=== PATIENT | female | born 1990 | race Caucasian/White ===

== ENCOUNTER 2018-01-23 04:11 | Emergency (ER) | payer BC ==
[2018-01-23] MEDS ORDERED: MORPHINE SULFATE 10 MG/ML INJ IV ONE (04:34)
[2018-01-23] MEDS ORDERED: ONDANSETRON HCL INJ/PF 4 MG/2 ML SDV IV ONE (04:35)
--- NOTE | 2018-01-23 04:38 | ER Document Report ---
ED General - General Chief Complaint: Abdominal Pain Stated Complaint: ABDOMINAL PAIN Time Seen by Provider: 01/23/18 04:30 Mode of Arrival: Ambulatory Information source: Patient, Friend Notes: 27-year-old female with no reported past medical history presents with complaint of right lower quadrant pain that started just prior to arrival. Patient states that she awoke from sleep crying. Pain is described as stabbing , constant and associated with nausea but no vomiting. Patient states that she went to bed well. She denies any recent illness. She denies fever, chills, chest pain, shortness of breath, back pain, dysuria, hematuria, vaginal discharge. Last menstrual period was 1 week prior to this visit. She denies sick contacts. She denies any recent travel, antibiotic use. - HPI Onset: Just prior to arrival Onset/Duration: Sudden Quality of pain: Sharp, Stabbing Severity: Moderate Associated symptoms: Nausea. denies: Chest pain, Diarrhea, Fever, Vomiting, Shortness of breath Exacerbated by: Movement Relieved by: Denies Similar symptoms previously: No Recently seen / treated by doctor: No - Related Data Allergies/Adverse Reactions: No Known Drug Allergies Allergy (Verified 01/23/18 05:42) Past Medical History - General Information source: Patient - Social History Smoking Status: Never Smoker Frequency of alcohol use: None Drug Abuse: None Lives with: Spouse/Significant other Family History: Reviewed & Not Pertinent Patient has suicidal ideation: No Patient has homicidal ideation: No - Medical History Medical History: Negative Review of Systems - Review of Systems Notes: REVIEW OF SYSTEMS: CONSTITUTIONAL : Denies fever, chills, or sweats. Denies recent illness. Denies weight loss, recent hospitalizations. EENT: Denies visual changes, eye pain. Denies sore throat, oral lesions, difficulty swallowing. CARDIOVASCULAR: Denies chest pain. Denies palpitations. Denies lower extremity edema. RESPIRATORY: Denies cough. Denies shortness of breath, wheezing. GASTROINTESTINAL: Denies abdominal distention. Denies vomiting, or diarrhea. Denies blood in vomitus, stools, or per rectum. Denies black, tarry stools. Denies constipation. GENITOURINARY: Denies difficulty urinating, painful urination, frequency, blood in urine, or vaginal discharge. MUSCULOSKELETAL: Denies back or neck pain or stiffness. Denies joint pain or swelling. SKIN: Denies rash, lesions or sores. HEMATOLOGIC : Denies easy bruising or bleeding. LYMPHATIC: Denies swollen glands. NEUROLOGICAL: Denies confusion or altered mental status. Denies loss of consciousness. Denies dizziness or lightheadedness. Denies headache. Denies weakness or paralysis. Denies problems difficulty with ambulation, slurred speech. Denies sensory loss, numbness, or tingling. Denies seizures. PSYCHIATRIC: Denies anxiety or stress. Denies depression, suicidal ideation, or homicidal ideation. Denies visual or auditory hallucinations. PHYSICAL EXAMINATION: GENERAL: Well-appearing, well-nourished and in no acute distress. HEAD: Atraumatic, normocephalic. EYES: Pupils equal round and reactive to light, extraocular movements intact, conjunctiva are normal. ENT: Nares patent, oropharynx clear without exudates. Moist mucous membranes. NECK: Normal range of motion, supple without lymphadenopathy LUNGS: Breath sounds clear to auscultation bilaterally and equal. No wheezes rales or rhonchi. HEART: Regular rate and rhythm without murmurs ABDOMEN: Right lower quadrant tenderness with palpation. No guarding, no rebound. No masses appreciated. Female : deferred Musculoskeletal: Normal range of motion, no pitting or edema. No cyanosis. NEUROLOGICAL: Cranial nerves grossly intact. Normal speech, normal gait. Normal sensory, motor exams PSYCH: Normal mood, normal affect. SKIN: Warm, Dry, normal turgor, no rashes or lesions noted. Physical Exam - Vital signs Vitals: Temp Pulse Resp BP Pulse Ox 97.8 F 63 18 112/80 100 01/23/18 04:24 01/23/18 04:24 01/23/18 04:24 01/23/18 04:24 01/23/18 04:24 Interpretation: Normal. No: Tachycardic, Febrile - Notes Notes: PHYSICAL EXAMINATION: GENERAL: Well-appearing, well-nourished and in no acute distress. HEAD: Atraumatic, normocephalic. EYES: Pupils equal round and reactive to light, extraocular movements intact, conjunctiva are normal. ENT: Nares patent, oropharynx clear without exudates. Moist mucous membranes. NECK: Normal range of motion, supple without lymphadenopathy LUNGS: Breath sounds clear to auscultation bilaterally and equal. No wheezes rales or rhonchi. HEART: Regular rate and rhythm without murmurs ABDOMEN: Right lower quadrant tenderness with palpation. Positive McBurney's.. No guarding, no rebound. No masses appreciated. Female : deferred Musculoskeletal: Normal range of motion, no pitting or edema. No cyanosis. NEUROLOGICAL: Cranial nerves grossly intact. Normal speech, normal gait. Normal sensory, motor exams PSYCH: Normal mood, normal affect. SKIN: Warm, Dry, normal turgor, no rashes or lesions noted. Course - Re-evaluation Re-evalutation: 01/23/18 22:27 Laboratory 01/23/18 01/23/18 01/23/18 04:42 04:42 05:15 WBC 6.0 RBC 3.79 Hgb 12.3 Hct 35.9 L MCV 95 MCH 32.3 MCHC 34.2 RDW 13.1 Plt Count 293 Seg Neutrophils % 52.0 Lymphocytes % 37.6 Monocytes % 5.9 Eosinophils % 4.0 Basophils % 0.5 Absolute Neutrophils 3.1 Absolute Lymphocytes 2.3 Absolute Monocytes 0.4 Absolute Eosinophils 0.2 Absolute Basophils 0.0 Sodium 142.8 Potassium 3.9 Chloride 105 Carbon Dioxide 28 Anion Gap 10 BUN 9 Creatinine 0.71 Est GFR ( Amer) > 60 Est GFR (Non-Af Amer) > 60 Glucose 91 Calcium 9.4 Total Bilirubin 0.5 Direct Bilirubin 0.2 Neonat Total Bilirubin Not Reportable Neonat Direct Bilirubin Not Reportable Neonat Indirect Bili Not Reportable AST 25 ALT 16 Alkaline Phosphatase 74 Total Protein 7.1 Albumin 4.1 Lipase 75.3 Urine Color YELLOW Urine Appearance CLEAR Urine pH 6.0 Ur Specific [place] 1.009 Urine Protein 30 H Urine Glucose (UA) NEGATIVE Urine Ketones NEGATIVE Urine Blood LARGE H Urine Nitrite NEGATIVE Urine Bilirubin NEGATIVE Urine Urobilinogen NEGATIVE Ur Leukocyte Esterase LARGE H Urine WBC (Auto) 31 Urine RBC (Auto) 170 Urine Bacteria (Auto) 3+ Squamous Epi Cells Auto 3 Urine Mucus (Auto) RARE Urine Ascorbic Acid NEGATIVE Urine HCG, Qual NEGATIVE Abdomen/Pelvis CT 01/23/18 04:35 IMPRESSION: 1. No acute inflammatory or obstructive process identified. 2. Nonobstructing right nephrolithiasis This exam was performed according to our departmental dose-optimization program, which includes automated exposure control, adjustment of the mA and/or kV according to patient size and/or use of iterative reconstruction technique. 27-year-old female presents with complaint of right lower quadrant pain that started just prior to arrival. She described it as a sharp pain that was associated with nausea without vomiting. Patient describes the pain is intermittent. Vital signs stable upon arrival. Patient is afebrile, normotensive and not hypoxic. She does not appear toxic or dehydrated. She is in no acute distress. Exam is significant for right lower quadrant tenderness without guarding or rebound. No evidence of peritonitis. CBC is without leukocytosis or anemia. CMP shows no significant electrolyte abnormalities. HCG is negative. Urine is consistent with urinary tract infection. CT of the abdomen was obtained to assess for appendicitis and did show a nonobstructing right nephrolithiasis. No urolithiasis was identified. It is possible since the patient has blood in her urine that she has already passed a stone. I did explain to the patient that she has a stone in her kidney that is not causing her pain but that when it does start to descend she could experience pain similar to this. Patient was given morphine, Zofran, Keflex, IV fluids during her ED course. On reevaluation patient states her pain has greatly improved. I have low suspicion for infected obstructed stone, pyelonephritis, appendicitis , tubo-ovarian abscess. Patient was evaluated and treated as appropriate for the patient's presenting symptoms and complaint, with consideration of any critical or life threatening conditions that may be associated with their obtained history and exam as noted above. All results were discussed with patient. Patient provided the opportunity to ask questions, and express concerns. Patient was educated on treatments based on their presumed diagnosis as noted above. At this time we will discharge the patient with return precautions and follow-up recommendations. Verbal discharge instructions given a the bedside. Medication warnings reviewed. Patient is in agreement with this plan and has verbalized understanding of return precautions. After careful consideration I feel that that patient can be safely discharged from the emergency department, they were advised to followup with a primary care physician in 2-3 days. Dictation on this chart was performed using voice recognition software and may result in unintended grammatical, spelling, syntax or errors. 01/23/18 22:28 01/23/18 22:29 - Vital Signs Vital signs: Temp Pulse Resp BP Pulse Ox 97.9 F 62 15 99/57 L 100 01/23/18 06:42 01/23/18 06:42 01/23/18 06:42 01/23/18 06:42 01/23/18 06:42 - Laboratory Result Diagrams: 01/23/18 04:42 01/23/18 04:42 Laboratory results interpreted by me: 01/23/18 01/23/18 04:42 05:15 Hct 35.9 L Urine Protein 30 H Urine Blood LARGE H Ur Leukocyte Esterase LARGE H - Diagnostic Test Radiology reviewed: Image reviewed, Reports reviewed Discharge - Discharge Clinical Impression: Right lower quadrant abdominal pain, Nephrolithiasis Urinary tract infection Qualifiers: Urinary tract infection type: site unspecified Hematuria presence: with hematuria Qualified Code(s): N39.0 - Urinary tract infection, site not specified Condition: Good Disposition: HOME, SELF-CARE Instructions: Abdominal Pain ([facility]), Kidney Stone ([facility]), Observation for Appendicitis ([facility]), Urinary Tract Infection ([facility]) Additional Instructions: Your CAT scan did not show evidence of appendicitis. It did show that you have a stone in your right kidney which does not cause pain. It is possible that the acute pain that he felt was you passing a stone but we did not see any evidence of a stone in your ureter or bladder. Your urine shows findings consistent with a urinary tract infection. Please take all the antibiotics as directed even if your symptoms have improved. Please follow-up with your primary care physician as needed. Return to emergency room if you develop fever >101F, persistent vomiting, become lethargic, have severe pain in your sides, or any other symptoms that are concerning to you. Follow up with your [id number] hours for further care or return to the ED IMMEDIATELY if symptoms worsen or you have any concerns. If you cannot afford to follow up with your primary care physician a list of low cost clinics have been provided at the end of your discharge papers as well. Most prescribed medications have multiple side effects. The safest thing to do is when filling your prescription speak to your pharmacist regarding possible interactions with your normal home medications and over the counter medications such as Ibuprofen, Tylenol, Benadryl. If you experience any symptoms that cause you discomfort or concern you should discontinue the medication immediately and return to the emergency room or call your primary care physician. Prescriptions: Cephalexin Monohydrate [Keflex 500 mg Capsule] 500 mg PO BID 5 Days #14 capsule Forms: Return to Work
[2018-01-23] MEDS ORDERED: NORMAL SALINE 1000 ML 1,000 ML IV ONE (05:01)
[2018-01-23 05:04] LABS: ABSOLUTE EOSINOPHILS # (AUTO) 0.2 10^3/uL (0.0-0.6); ABSOLUTE LYMPHOCYTES (AUTO) 2.3 10^3/uL (0.5-4.7); ABSOLUTE MONOCYTES (AUTO) 0.4 10^3/uL (0.1-1.4); ABSOLUTE NEUT (AUTO) 3.1 10^3/uL (1.7-8.2); BASOPHILS % (AUTO) 0.5 % (0-2); HEMATOCRIT 35.9 % (36.0-47.0); HEMOGLOBIN 12.3 g/dL (12.0-15.5); LYMPHOCYTES % (AUTO) 37.6 % (13-45); MEAN CORPUSCULAR HEMOGLOBIN 32.3 pg (27.0-33.4); MEAN CORPUSCULAR HGB CONC 34.2 g/dL (32.0-36.0); MEAN CORPUSCULAR VOLUME 95 fl (80-97); MONOCYTES % (AUTO) 5.9 % (3-13); PLATELET COUNT 293 10^3/uL (150-450); RED BLOOD COUNT 3.79 10^6/uL (3.72-5.28); RED CELL DISTRIBUTION WIDTH 13.1 % (11.5-14.0); TOTAL CELLS COUNTED % (AUTO) 100 %
[2018-01-23 05:17] LABS: ALANINE AMINOTRANSFERASE 16 U/L (9-52); ALBUMIN 4.1 g/dL (3.5-5.0); ALKALINE PHOSPHATASE 74 U/L (38-126); ANION GAP 10 (5-19); ASPARTATE AMINO TRANSFERASE 25 U/L (14-36); BILIRUBIN,DIRECT 0.2 mg/dL (0.0-0.4); BILIRUBIN,TOTAL 0.5 mg/dL (0.2-1.3); BLOOD UREA NITROGEN 9 mg/dL (7-20); CALCIUM 9.4 mg/dL (8.4-10.2); CARBON DIOXIDE 28 mmol/L (22-30); CHLORIDE 105 mmol/L (98-107); GLUCOSE 91 mg/dL (75-110); LIPASE 75.3 U/L (23-300); POTASSIUM 3.9 mmol/L (3.6-5.0); SODIUM 142.8 mmol/L (137-145); TOTAL PROTEIN 7.1 g/dL (6.3-8.2)
[2018-01-23 05:40] LABS: APPEARANCE,URINE CLEAR; BILIRUBIN,URINE NEGATIVE (NEGATIVE); COLOR,URINE YELLOW; GLUCOSE, URINE NEGATIVE (NEGATIVE); KETONES,URINE NEGATIVE (NEGATIVE); LEUKOCYTE ESTERASE,URINE LARGE (NEGATIVE); NITRITE,URINE NEGATIVE (NEGATIVE); PROTEIN,URINE 30 mg/dL (NEGATIVE); URINE SPECIFIC GRAVITY 1.009; UROBILINOGEN,URINE NEGATIVE mg/dL (<2.0)
--- NOTE | 2018-01-23 06:17 | RADIOLOGY REPORT (SQ) ---
EXAM DESCRIPTION: CT ABDOMEN PELVIS WITH IV CONTRAST COMPLETED DATE/TME: 01/23/2018 04:35 CLINICAL HISTORY: rlq pain COMPARISON: None Available. TECHNIQUE: CT of the abdomen and pelvis performed following IV administration of 65 mL of Omnipaque 350. DLP: 457.66 mGycm FINDINGS: Lung Bases: The visualized lung bases are clear. Bones: No destructive bone lesions identified. Abdomen: Liver: The liver has normal size and density. No intrahepatic mass or biliary dilatation. Gallbladder: No calcified gallstones. Spleen, Pancreas, and Adrenal Glands: The spleen, pancreas, and adrenal glands are unremarkable. Kidneys: The kidneys have normal size and contour without evidence of solid mass or hydronephrosis. Nonobstructing right nephrolithiasis. Vasculature: The aorta and IVC have normal caliber and position. The portal vein is patent. The proximal visceral and renal arteries are patent. Stomach: The stomach and duodenum have normal course. Other: No free intraperitoneal air. No free fluid or lymphadenopathy. Pelvis: Bladder: Urinary bladder is unremarkable. Bowel: No dilated loops of large or small bowel. Appendix: Normal appendix. Pelvis: Uterus and is not enlarged. IMPRESSION: 1. No acute inflammatory or obstructive process identified. 2. Nonobstructing right nephrolithiasis This exam was performed according to our departmental dose-optimization program, which includes automated exposure control, adjustment of the mA and/or kV according to patient size and/or use of iterative reconstruction technique.
[2018-01-23] MEDS ORDERED: CEPHALEXIN 500 MG CAPSULE PO ONE (06:33)
[2018-01-23 06:43] VITALS: BP 99/57
== END 2018-01-23 07:01 | disposition home or self-care (01) ==
LOC: ER 04:11
DX: N20.0 Calculus of kidney (principal); N39.0 Urinary tract infection, site not specified; R11.0 Nausea; R10.31 Right lower quadrant pain
CPT/HCPCS: 99284; 96361; 96374; 96375; 36415; 83690; 85025; 81025; 80053; 81001; 74177; J2270; J2405; J7030